=== PATIENT | male | born 2005 | race Caucasian/White ===

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

== ENCOUNTER 2023-12-01 20:07 | Emergency (ER) | payer BC ==
[2023-12-01 20:43] VITALS: BP 148/96; PULSE 78
[2023-12-01 20:49] LABS: APPEARANCE,URINE CLEAR (CLEAR); BILIRUBIN,URINE NEGATIVE (NEGATIVE); COLOR,URINE YELLOW (YELLOW); GLUCOSE,URINE NEGATIVE (NEGATIVE); KETONES,URINE NEGATIVE (NEGATIVE); LEUKOCYTE ESTERASE,URINE NEGATIVE (NEGATIVE); NITRITE,URINE NEGATIVE (NEGATIVE); OCCULT BLOOD,URINE NEGATIVE (NEGATIVE); PROTEIN,URINE NEGATIVE (NEGATIVE); UROBILINOGEN,URINE 0.2 mg/dL (0.2-1.0)
[2023-12-01] MEDS: Orphenadrine 60 MG/2 ML Inj IM ONE (21:54)
[2023-12-01] MEDS: Ketorolac 30 MG/ML SDV IM ONE (21:54)
== END 2023-12-01 22:41 | disposition home or self-care (01) ==
LOC: DL.ED 20:07
DX: T14.8XXA Other injury of unspecified body region, initial encounter (principal); Z90.49 Acquired absence of other specified parts of digestive tract; F17.210 Nicotine dependence, cigarettes, uncomplicated
CPT/HCPCS: 74176; 81003; 96372; 99283; 99284; J1885; J2360

== ENCOUNTER 2025-01-03 20:59 | Emergency (ER) | payer BC ==
[2025-01-03] MEDS ORDERED: Sodium Chloride 0.9% 10 ML Syringe FLUSH PRN (21:15)
[2025-01-03 21:23] LABS: BASOPHILS PERCENT AUTO 0.4 % (0.0-1.0); EOSINOPHILS PERCENT AUTO 1.4 % (1.0-3.0); LYMPHOCYTES PERCENT AUTO 25.2 % (20.5-50.1); MONOCYTES PERCENT AUTO 9.0 % (2-8); NEUTROPHILS PERCENT AUTO 64.0 % (42.2-75.2); PLATELET COUNT,PLT 307 10^3/uL (150-450); RED BLOOD CELL COUNT 5.48 10^6/uL (4.6-6.2); WHITE BLOOD CELL COUNT,WBC 11.0 10^3/uL (5.0-10.0)
[2025-01-03 21:39] LABS: LACTIC ACID 0.6 mmol/L (0.4-2.0)
[2025-01-03 21:44] LABS: INR 1.0 (0.9-1.2); PTT,PARTIAL THROMBOPLSTIN TIME 28.5 SEC (22.0-34.0)
[2025-01-03 21:47] LABS: A/G RATIO 1.1; ALANINE AMINOTRANSFERASE,ALT 45 U/L (16-63); ASPARTATE AMNIOTRANSFERASE,AST 21 U/L (15-37); BILIRUBIN TOTAL 0.5 mg/dL (0.2-1.0); BLOOD UREA NITROGEN,BUN 18 mg/dL (7-18); CARBON DIOXIDE,CO2 27 mmol/L (21-32); CHLORIDE,CL 103 mmol/L (98-107); CREATININE 1.27 mg/dL (0.70-1.30); EST CRCL DRUG DOSING (CG) 98.00 mL/min; ESTIMATED GFR 82 mL/min (>=60); GLUCOSE RANDOM 89 mg/dL (70-99); POTASSIUM,K 3.5 mmol/L (3.5-5.1); PROTEIN TOTAL,TP 8.4 g/dL (6.4-8.2); SODIUM,NA 143 mmol/L (136-145); TSH ULTRASENSITIVE 5.17 uIU/mL (0.36-3.74)
[2025-01-03 22:28] VITALS: PULSE 88
[2025-01-03 23:01] VITALS: BP 145/99
== END 2025-01-03 23:01 | disposition home or self-care (01) ==
LOC: DL.ED 20:59
DX: F41.9 Anxiety disorder, unspecified (principal); R07.89 Other chest pain; R94.6 Abnormal results of thyroid function studies
CPT/HCPCS: 36415; 71045; 80053; 83605; 83735; 84443; 84484; 85025; 85610; 85730; 86140; 93005; 99285; A9270; J7030; 93010; 99284